=== PATIENT | female | born 1935 | race Caucasian/White ===

== ENCOUNTER 2016-06-04 09:32 | Outpatient (CLI) | payer OTHER, BC ==
--- NOTE | 2016-06-07 09:30 | DIAGNOSTIC IMAGING REPORT ---
PROCEDURE: 2-D M-mode echo Doppler CLINICAL INDICATION: AI and MR TECHNIQUE: Standard COMPARISON: None FINDINGS: The aortic valve exhibits calcification 1+ aortic insufficiency detected mild aortic stenosis present with a mean gradient 6 mm valve area 1.4 cm2. The mitral valve exhibits one to 2+ MR no stenosis seen the tricuspid valve exhibits one apply 2+ T I with RVSP 34 pulmonic valve is normal. Mild left and right atrial enlargement is apparent mild LVH present ventricular ejection fraction 65% with normal contraction right ventricular size and function is normal pressure mildly elevated 34 mmHg no abnormalities of the aortic order pericardium are appreciated IMPRESSION: 1+ AI 2+ MR One to 2+ TR RVSP 34 LVH By atrial enlargement A of 65% with normal contraction Mild aortic stenosis valve area 1.4 cm2 mean gradient 6 mm
== END 2016-06-04 23:00 ==
LOC: US SRH 09:32
DX: I08.3 Combined rheumatic disorders of mitral, aortic and tricuspid valves (principal)